=== PATIENT | male | born 1970 | race Hispanic/Latino ===

== ENCOUNTER 2020-05-16 09:48 | Emergency (ER) | payer SELFPAY ==
[2020-05-16 10:17] VITALS: BP 112/71
--- NOTE | 2020-05-16 10:23 | Emergency Department Report ---
ED Back Pain/Injury HPI - General Chief Complaint: Extremity Injury, Lower Stated Complaint: RT HIP/LEG/KNEE PAIN Time Seen by Provider: 05/16/20 10:18 Source: patient Limitations: No Limitations - History of Present Illness Initial Comments: 49-year-old male with history of sciatica presents with complaints of right- sided low back/hip pain that radiates down the leg, gradual onset over the past week. He denies any trauma though states he does push a lot of heavy carts at work. Denies any numbness, weakness, bowel or bladder changes, fevers. States he had a similar episode last year that he was prescribed medication for and then it resolved. Pain is moderate, nothing makes better or worse. - Related Data Previous Rx's Medication Instructions Recorded Last Taken Type Sulfamethoxazole/Trimethoprim 1 each PO BID 7 Days #14 tablet 09/26/19 Unknown Rx [Bactrim DS TAB] Naproxen [Naprosyn] 500 mg PO BID #20 tablet 05/16/20 Unknown Rx Prednisone [predniSONE 10 mg 10 mg PO .TAPER #1 tab.ds.pk 05/16/20 Unknown Rx (6-Day Pack, 21 Tabs)] diazePAM TAB [Valium] 5 mg PO TID PRN #12 tablet 05/16/20 Unknown Rx Allergies Allergy/AdvReac Type Severity Reaction Status Date / Time No Known Allergies Allergy Unverified 09/26/19 15:45 ED Review of Systems ROS: Stated complaint: RT HIP/LEG/KNEE PAIN Other details as noted in HPI Comment: All other systems reviewed and negative Musculoskeletal: as per HPI ED Back Pain Physical Exam - Exam General: Vital signs noted. No distress. Alert and acting appropriately. Back/Abdomen: Yes Straight Leg Raise Pain (Tenderness right sciatic notch), No Abdominal Tenderness, No Perithoracic Tenderness, No Perilumbar Tenderness, No Flank Tenderness Neuro: Yes Normal Sensation, Yes Normal DTR's, Yes Normal Gait, No Motor Weakness ED Course Vital Signs 05/16/20 10:15 Temperature 97.9 F Pulse Rate 74 Respiratory 18 Rate Blood Pressure 112/71 O2 Sat by Pulse 97 Oximetry ED Medical Decision Making - Medical Decision Making Patient presents with complaints of right hip/low back pain radiating down the right leg, no other associated symptoms such as numbness weakness bowel or bladder changes. On exam he does have a positive straight leg raise on the right with the right sciatic notch pain, no midline spinal pain or tenderness. I have a very low suspicion for cord compression or other neurosurgical emergent process. He will be treated symptomatically for sciatica and referred to orthopedics for follow-up. Return precautions given. - Differential Diagnosis Sciatica, muscle strain, spasms Critical care attestation.: If time is entered above; I have spent that time in minutes in the direct care of this critically ill patient, excluding procedure time. ED Disposition Clinical Impression: Right sided sciatica Disposition: TO HOME OR SELFCARE Is pt being admited?: No Condition: Good Instructions: Sciatica Prescriptions: Naproxen [Naprosyn] 500 mg PO BID #20 tablet Prednisone [predniSONE 10 mg (6-Day Pack, 21 Tabs)] 10 mg PO .TAPER #1 tab.ds.pk diazePAM TAB [Valium] 5 mg PO TID PRN #12 tablet PRN Reason: muscle spasm Referrals: BABS RODRIGUEZ MD [Staff Physician] - 3-5 Days Forms: Work/School Release Form(ED) Time of Disposition: 10:22
== END 2020-05-16 10:38 | disposition home or self-care (01) ==
LOC: ED 09:48
DX: M54.31 Sciatica, right side (principal)
CPT/HCPCS: 99282

== ENCOUNTER 2020-05-22 05:10 | Emergency (ER) | payer SELFPAY ==
[2020-05-22] MEDS ORDERED: GABAPENTIN 300 MG CAP PO ONE (05:24)
[2020-05-22] MEDS ORDERED: predniSONE 20 MG TAB PO ONE (05:24)
[2020-05-22] MEDS ORDERED: ACETAMINOPHEN 500 MG TAB PO ONE (05:25)
[2020-05-22] MEDS ORDERED: IBUPROFEN 600 MG TAB PO ONE (05:25)
--- NOTE | 2020-05-22 05:30 | Emergency Department Report ---
ED Extremity Problem HPI - General Chief complaint: Pain General Stated complaint: RT SIDE PAIN Source: patient Mode of arrival: Ambulatory Limitations: No Limitations - History of Present Illness Initial comments: Patient is a 49-year-old white male no past medical history presents to the ED with acute onset persistent severe right hip pain that radiates to the right leg for the last 2 weeks, worse in the last 2 days. Patient states that his pain gets worse with rest but improves with activity and ambulation. Patient states that he was initially evaluated for the same complaint about 2 weeks ago and has been taking steroid Dosepak with Valium as needed and Aleve with no relief. 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 Patient denies fall, traumatic injury, dizziness, syncope, numbness and tingling or weakness of right leg, hematuria, dysuria, urinary frequency and urgency, testicular pain, fever, chills, nausea and vomiting. MD Complaint: extremity pain (Right hip pain that radiates to the Right leg), joint paint (right hip) -: Sudden, week(s) (2) Location: right, lower extremity (hip and leg) History of Same: Yes -: Yes arthralgia, No fever, No associated dyspnea, No associated chest pain Radiation: distal Severity scale (0 -10): 9 Quality: aching, sharp Consistency: constant Improves with: movement Worsens with: rest Associated Symptoms: denies other symptoms, myalgias, arthralgias (right hip pain). denies: chest pain, shortness of breath - Related Data Previous Rx's Medication Instructions Recorded Last Taken Type Sulfamethoxazole/Trimethoprim 1 each PO BID 7 Days #14 tablet 09/26/19 Unknown Rx [Bactrim DS TAB] Prednisone [predniSONE 10 mg 10 mg PO .TAPER #1 tab.ds.pk 05/16/20 Unknown Rx (6-Day Pack, 21 Tabs)] diazePAM TAB [Valium] 5 mg PO TID PRN #12 tablet 05/16/20 Unknown Rx Baclofen 20 mg PO Q6H PRN #[id number] tablet 05/22/20 Unknown Rx Gabapentin 300 mg PO Q12H PRN #60 capsule 05/22/20 Unknown Rx Naproxen [Naprosyn TAB] 500 mg PO BID #30 tablet 05/22/20 Unknown Rx traMADoL [Ultram] 50 mg PO Q6HR PRN #12 tablet 05/22/20 Unknown Rx Allergies Allergy/AdvReac Type Severity Reaction Status Date / Time No Known Allergies Allergy Unverified 09/26/19 15:45 ED Review of Systems ROS: Stated complaint: RT SIDE PAIN Other details as noted in HPI Constitutional: denies: chills, fever Eyes: denies: eye pain, eye discharge, vision change ENT: denies: ear pain, throat pain Respiratory: denies: cough, shortness of breath, wheezing Cardiovascular: denies: chest pain, palpitations Endocrine: no symptoms reported Gastrointestinal: denies: abdominal pain, nausea, diarrhea Genitourinary: denies: urgency, dysuria Musculoskeletal: back pain (Low back pain), arthralgia (Right hip pain). denies: joint swelling Skin: denies: rash, lesions Neurological: denies: headache, weakness, paresthesias Psychiatric: denies: anxiety, depression Hematological/Lymphatic: denies: easy bleeding, easy bruising ED Past Medical Hx - Social History Smoking Status: Current Some Day Smoker Substance Use Type: Marijuana - Medications Home Medications: Home Medications Medication Instructions Recorded Confirmed Last Taken Type Sulfamethoxazole/Trimethoprim 1 each PO BID 7 Days #14 tablet 09/26/19 Unknown Rx [Bactrim DS TAB] Prednisone [predniSONE 10 mg 10 mg PO .TAPER #1 tab.ds.pk 05/16/20 Unknown Rx (6-Day Pack, 21 Tabs)] diazePAM TAB [Valium] 5 mg PO TID PRN #12 tablet 05/16/20 Unknown Rx Baclofen 20 mg PO Q6H PRN #[id number] tablet 05/22/20 Unknown Rx Gabapentin 300 mg PO Q12H PRN #60 capsule 05/22/20 Unknown Rx Naproxen [Naprosyn TAB] 500 mg PO BID #30 tablet 05/22/20 Unknown Rx traMADoL [Ultram] 50 mg PO Q6HR PRN #12 tablet 05/22/20 Unknown Rx ED Physical Exam - General Limitations: No Limitations General appearance: alert, in no apparent distress - Head Head exam: Present: atraumatic, normocephalic, normal inspection - Eye Eye exam: Present: normal appearance, PERRL, EOMI Pupils: Present: normal accommodation - ENT ENT exam: Present: normal exam, normal orophraynx, mucous membranes moist, TM's normal bilaterally, normal external ear exam - Neck Neck exam: Present: normal inspection, full ROM - Respiratory Respiratory exam: Present: normal lung sounds bilaterally. Absent: respiratory distress, wheezes, rales, rhonchi, stridor, chest wall tenderness, accessory muscle use - Cardiovascular Cardiovascular Exam: Present: regular rate, normal rhythm, normal heart sounds. Absent: systolic murmur, diastolic murmur, rubs, gallop - GI/Abdominal GI/Abdominal exam: Present: soft, normal bowel sounds. Absent: tenderness, guarding, rebound, hyperactive bowel sounds, hypoactive bowel sounds, organomegaly, mass - Extremities Exam Extremities exam: Present: normal inspection, full ROM, tenderness (Palpable right hip and right thigh tenderness), normal capillary refill. Absent: pedal edema, joint swelling, calf tenderness - Back Exam Back exam: Present: normal inspection, full ROM, tenderness (Palpable lumbosacral paraspinal musculoskeletal tenderness), muscle spasm, paraspinal tenderness. Absent: CVA tenderness (R), CVA tenderness (L), vertebral tenderness - Neurological Exam Neurological exam: Present: alert, oriented X3, CN II-XII intact, normal gait, reflexes normal - Psychiatric Psychiatric exam: Present: normal affect, normal mood - Skin Skin exam: Present: warm, dry, intact, normal color. Absent: rash ED Course Vital Signs 05/22/20 05:16 Temperature 97.7 F Pulse Rate 79 Respiratory 18 Rate Blood Pressure 135/82 O2 Sat by Pulse 98 Oximetry ED Medical Decision Making - Medical Decision Making This is a 49-year-old white male no past medical history presents to the ED with acute onset persistent severe right hip pain that radiates to the right leg for the last 2 weeks, worse in the last 2 days. Patient states that his pain gets worse with rest but improves with activity and ambulation. Patient states that he was initially evaluated for the same complaint about 2 weeks ago and has been taking steroid Dosepak with Valium as needed and Aleve with no relief. 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 In the ED, patient is alert and oriented x3 and is not in distress but appears to be in pain. Patient was treated for pain in the ED based on the history and physical exam findings. On reevaluation, patient's pain is well controlled with medications. Patient symptoms are likely due to acute low back pain with sciatica, bursitis of right hip or muscle strain of right leg. Patient was discharged home on pain medications and advised to follow-up with his primary care physician in 5 to 7 days for reevaluation. Patient was advised to return to the ED immediately if symptoms get worse. - Differential Diagnosis Sciatica; back pain, hip bursitis; DJD; muscle strain; muscle spasm Critical care attestation.: If time is entered above; I have spent that time in minutes in the direct care of this critically ill patient, excluding procedure time. ED Disposition Clinical Impression: Muscle spasm of right lower extremity Acute low back pain with right-sided sciatica Qualifiers: Back pain laterality: bilateral Qualified Code(s): M54.41 - Lumbago with sciatica, right side Bursitis of right hip Qualifiers: Hip bursitis location: unspecified Qualified Code(s): M70.71 - Other bursitis of hip, right hip Disposition: TO HOME OR SELFCARE Is pt being admited?: No Does the pt Need Aspirin: No Condition: Stable Instructions: Muscle Cramps and Spasms, [id number], Hip Bursitis, [id number], Sciatica, Sciatica, [id number] Additional Instructions: Your symptoms are likely due to acute low back pain with sciatica on the right side. Therefore take medication with food, drink plenty of fluids and follow-up with your primary care physician in 5 to 7 days for reevaluation. Return to the ED immediately if symptoms get worse. Prescriptions: Baclofen 20 mg PO Q6H PRN #[id number] tablet PRN Reason: Pain , Severe (7-10) Gabapentin 300 mg PO Q12H PRN #60 capsule PRN Reason: Pain , Severe (7-10) Naproxen [Naprosyn TAB] 500 mg PO BID #30 tablet traMADoL [Ultram] 50 mg PO Q6HR PRN #12 tablet PRN Reason: Pain Referrals: [facility] [Provider Group] - 3-5 Days GERDA LAND MD [Staff Physician] - 3-5 Days Forms: Work/School Release Form(ED) Time of Disposition: 05:33 Print Language: GREENLANDIC
[2020-05-22 06:14] VITALS: BP 122/79
== END 2020-05-22 06:13 | disposition home or self-care (01) ==
LOC: ED 05:10
DX: M62.831 Muscle spasm of calf (principal); M54.41 Lumbago with sciatica, right side; M70.71 Other bursitis of hip, right hip; F17.200 Nicotine dependence, unspecified, uncomplicated; F12.10 Cannabis abuse, uncomplicated; Z79.899 Other long term (current) drug therapy
CPT/HCPCS: 99282; J7512